=== PATIENT | male | born 2000 | race Caucasian/White ===

== ENCOUNTER → 2023-12-19 09:50 | Outpatient (REF) | payer BC, SELFPAY | LOC: RAD 09:50 | PROVIDERS: ATTENDING PHYSICIAN Nurse Practitioner Adult Health | DX: R05.1 Acute cough (principal) | CPT/HCPCS: 71046 ==

== ENCOUNTER → 2024-05-06 12:29 | Outpatient (REF) | payer BC, SELFPAY ==
[2024-05-06 12:59] LABS: % Eosinophils 1.1 % (0-6); % Immature Granulocytes 0.2 % (0-0.5); % Lymphocytes 38.7 % (20.5-51.1); % Monocytes 6.9 % (1.7-9.3); % Neutrophils 52.1 % (42.2-75.2); Absolute Basophils 0.1 10^3/uL (0-0.2); Absolute Eosinophils 0.1 10^3/uL (0-0.7); Absolute Monocytes 0.4 10^3/uL (0.1-0.6); Absolute Neutrophils 2.7 10^3/uL (1.4-6.5); Hematocrit 50.6 % (39.0-52.0); Hemoglobin 17.4 g/dL (13.0-18.0); Mean Corp Hgb Conc. 34.4 g/dL (33.0-37.0); Mean Corpuscular Hgb 28.3 pg (27.0-31.0); Mean Corpuscular Volume 82.3 fL (80.0-94.0); Mean Platelet Volume 9.4 fL (7.4-10.4); Nucleated Red Blood Cells % 0 % (-); Platelet Count 212 10^3/uL (130-400); Red Blood Cell Count 6.15 10^6/uL (4.70-6.10); Red Cell Dist. Width 11.7 % (11.5-14.5); White Blood Cell Count 5.2 10^3/uL (4.8-10.8)
[2024-05-06 13:29] LABS: ALT (SGPT) 37 U/L (0-50); AST (SGOT) 24 U/L (17-59); Albumin 5.3 g/dl (3.5-5.0); Alkaline Phosphatase 68 U/L (38-126); Blood Urea Nitrogen 19 mg/dl (9-20); Calcium 10.1 mg/dl (8.4-10.2); Carbon Dioxide 34 mmol/L (22-30); Chloride 98 mmol/L (98-107); Glucose 94 mg/dl (70-99); HDL Cholesterol 49 mg/dl; LDL Cholesterol, Calculated 140 mg/dl; Potassium 4.6 mmol/L (3.5-5.1); Sodium 138 mmol/L (135-145); Total Cholesterol 216 mg/dl (50-199); Total Protein 8.1 g/dl (6.3-8.2); Triglyceride 135 mg/dl (10-149); Very Low Density Lipoprotein 27 mg/dl (0-30); eGFR > 60.00
[2024-05-06 13:55] LABS: TSH Reflex To Free T4 1.41 uIU/ml (0.47-4.68)
== END ==
LOC: REG 12:29
PROVIDERS: ATTENDING PHYSICIAN Registered Nurse
DX: J18.9 Pneumonia, unspecified organism (principal); Z13.220 Encounter for screening for lipoid disorders
CPT/HCPCS: 36415; 80053; 80061; 84443; 85025